=== PATIENT | male | born 1965 | race Two or more races ===

== ENCOUNTER 2019-09-27 09:14 | Emergency (ER) | payer OTHER, MEDICAID ==
[~2019-09-27] VITALS: Ht 165.1 cm; Wt 70.5 kg
[2019-09-27] MEDS ORDERED: IBUPROFEN 600MG TABLET PO ONE (09:45)
[2019-09-27] MEDS ORDERED: TETANUS, DIPHTHERIA, PERTUSSIS VAC/PF 0.5ML (>7YR OLD) IM ONE (09:45)
[2019-09-27] MEDS ORDERED: BACITRACIN ZINC OINT UDPKT TOP ONE (09:45)
[2019-09-27 09:54] VITALS: BP 126/81
== END 2019-09-27 10:17 | disposition home or self-care (01) ==
LOC: ER 09:14
DX: S61.211A Laceration without foreign body of left index finger without damage to nail, initial encounter (principal); W26.8XXA Contact with other sharp object(s), not elsewhere classified, initial encounter; Y93.89 Activity, other specified; Y92.89 Other specified places as the place of occurrence of the external cause; Y99.8 Other external cause status; E78.00 Pure hypercholesterolemia, unspecified; Z87.438 Personal history of other diseases of male genital organs
CPT/HCPCS: 73140; 90471; 90715; 99283